=== PATIENT | male | born 1945 | race Caucasian/White ===

== ENCOUNTER 2017-07-13 06:22 | Day surgery (SDC) | payer MEDICARE ==
[2017-07-13] VITALS (8 sets, daily range): BP systolic 106–149; BP diastolic 70–95; PULSE 71–92; RESP 18–20; TEMP 97.7–97.8; O2SAT 92–94
[~2017-07-13] VITALS: Ht 175.3 cm; Wt 73.5 kg
[~2017-07-13 06:22] MED LIST: AMLO5TAB96 PO; ASPI81TA82 PO; ENAL20TA PO; FORM12I INH; HYDR-2768 PO; PRAV40TA2 PO; SIMV20TA PO; SPIRCAP INH; VENTAER INH
[2017-07-13] MEDS ORDERED: B-12100T PO (06:55)
[2017-07-13] MEDS ORDERED: VENTAER INH (06:55)
[2017-07-13] MEDS ORDERED: HYDR12.56 PO (06:55)
[2017-07-13] MEDS ORDERED: AMLO5TAB2 PO (06:55)
[2017-07-13] MEDS ORDERED: PRAV40TA2 PO (06:55)
[2017-07-13] MEDS ORDERED: UMEC1INH INH (06:55)
[2017-07-13] MEDS ORDERED: LISI-515 PO (06:55)
[2017-07-13] MEDS ORDERED: BUDE2SUS4 NEB (06:55)
[2017-07-13] MEDS ORDERED: LIDOCAINE HCL 1% 20 ML VIAL ONE (07:37)
[2017-07-13] MEDS ORDERED: MIDAZOLAM HCL 2 MG/2 ML VIAL ONE (07:39)
[2017-07-13] MEDS ORDERED: fentaNYL CITRATE 250 MCG/5 ML AMP ONE (07:40)
[2017-07-13] MEDS ORDERED: SODIUM CHLOR 0.9% 1000 ML INJ 1,000 ML IV SCH (07:45)
--- NOTE | 2017-07-13 09:08 | PD.RAD ---
Post CT Procedure Prog Note Pre Procedure Diagnosis: (1) Lung mass Post Procedure Diagnosis: (1) Lung mass Procedure Date: Jul 13, 2017 Supervising Radiologist: Les Elena Estimated blood loss: <5 ml Plan of Activity Patient to Unit: [facility] Patient Condition: Good Additional Comments: removed 60 ml of dark old bloody fluid See PACS Report for procedural detail/treatment Les Elena MD Jul 13, 2017 09:08
[2017-07-13] MEDS ORDERED: oxyCODONE/ACETAMINOPHEN 5 MG/325 MG TAB PO PRN (09:15)
--- NOTE | 2017-07-13 10:00 | RADRPT ---
EXAM DATE/TIME: 07/13/2017 08:31 [facility] COMPARISON: No previous studies available for comparison. INDICATIONS : History of severe COPD with new cavitary lung mass in the superior segment of the right lower lobe wi th air-fluid level. SEDATION TIME: 30 minutes BIOPSY SITE: Right lung MEDICATION(S): 1.) 2.5 mg midazolam (Versed) IV 2.) 125 mcg fentanyl (Sublimaze) IV DEVICE(S): 1.) 20 gauge Temno core biopsy needle 2.) 18 gauge Cho blunt needle MEDICAL HISTORY : Chronic obstructive pulmonary disease. Hypertension. SURGICAL HISTORY : None. ENCOUNTER: Initial ACUITY: 1 day PAIN SCORE: 0/10 LOCATION: Right chest A total of two core specimen(s) were obtained and sent to the laboratory for pathologic evaluation. PROCEDURE: 1. CT guided lung mass aspiration and biopsy 2. Conscious sedation with continuous EKG and oximetry monitoring. 3. EKG and oximetry remained stable throughout the procedure. Prior to the procedure informed consent was obtained. Any appropriate prior imaging studies were rev iewed. Using automated exposure control and adjustment of the mA and/or kV according to patient size, radiation dose was kept as low as reasonably achievable to obtain optimal diagnostic quality images. DICOM format image data is available electronically for review and comparison. The site was prepped in a sterile fashion. Full sterile technique was used, including cap, mask, haroon rile gloves and gown and a large sterile sheet. Hand hygiene and 2% chlorhexidine and/or betadine/al cohol prep was utilized per protocol for cutaneous antisepsis. The skin and subcutaneous tissues wer e infiltrated with local anesthetic solution. With CT guidance the previously identified target was localized. A 18 gauge Cho blunt tip needle was advanced into the cavitary mass under careful CT guidance. Approximate 60 cc of dark old bloody f luid was aspirated. No additional fluid could be aspirated and CT exam demonstrated residual indeterm inate density collection within the mass. Therefore, two 20 gauge core biopsies were performed of thi s portion of the mass yielding scant material. Therefore, this material was submitted for cytology. Y ou have been removed. Post procedural CT exam demonstrated no evidence of hematoma or pneumothorax. T he mass does appear nearly unchanged in size, suspect small amount of intralesional hemorrhage. Conscious sedation was performed with the prescribed dosages and duration as above in the presence of an independent trained radiology nurse to assist in the monitoring of the patient. EKG and oximetry remained stable throughout the procedure. The patient tolerated the procedure well and there were no complications. The patient was sent to Radiology Outpatient Unit in stable condition. CONCLUSION: 1. Technically successful CT-guided aspiration and biopsy of cavitary right lower lobe lung mass, as above. Les Elena MD on July 13, 2017 at 9:51 Board Certified Radiologist. This report was verified electronically.
--- NOTE | 2017-07-13 11:35 | RADRPT ---
EXAM DATE/TIME: 07/13/2017 10:58 [facility] COMPARISON: CT NEEDLE BIOPSY LUNG, RIGHT, July 13, 2017, 8:31. INDICATIONS : Post Lung Biopsy MEDICAL HISTORY : Chronic obstructive pulmonary disease. Hypertension. SURGICAL HISTORY : None. ENCOUNTER: Initial ACUITY: 1 day PAIN SCORE: 0/10 LOCATION: Bilateral chest FINDINGS: 2 portable frontal views of the chest show no pneumothorax following lung biopsy. A masslike density is seen involving the right upper lobe. No effusions. Heart is normal in size. A scoliotic and degene rative thoracic spine. CONCLUSION: No pneumothorax. Oscar Gordon Jr., MD on July 13, 2017 at 11:31 Board Certified Radiologist. This report was verified electronically.
== END 2017-07-13 13:05 | disposition home or self-care (01) ==
LOC: HRAD 06:22 → HRIP 06:23 → HRAD 13:05
PROVIDERS: ATTEND Internal Medicine Pulmonary Disease
DX: R91.8 Other nonspecific abnormal finding of lung field (principal); J44.9 Chronic obstructive pulmonary disease, unspecified; I10 Essential (primary) hypertension
CPT/HCPCS: 32405; 71010; 77012; 87015; 87070; 87102; 87116; 87205; 87206; 88112; J2250; J3010; J7030